=== PATIENT | female | born 1965 | race African-American/Black ===

== ENCOUNTER 2019-03-02 00:10 | Emergency (ER) | payer MEDICAID ==
[~2019-03-02] VITALS: Ht 170.2 cm; Wt 105.0 kg
[2019-03-02 00:14] VITALS: Ht 170.2 cm; Wt 105.0 kg
[2019-03-02] MEDS ORDERED: GLUCOPHAGE1000 MG PO (00:15)
[2019-03-02] MEDS ORDERED: NORVASC5 MG PO (00:16)
[2019-03-02] MEDS ORDERED: METOPROLOL TART50 MG PO (00:16)
[2019-03-02] MEDS ORDERED: ULTRAM50 MG PO (02:58)
[2019-03-02 03:13] VITALS: BP 157/86
== END 2019-03-02 03:13 | disposition home or self-care (01) ==
LOC: D.ER 00:10
DX: G43.909 Migraine, unspecified, not intractable, without status migrainosus (principal)